=== PATIENT | male | born 1950 | race Caucasian/White ===

== ENCOUNTER 2018-05-01 09:50 | Day surgery (SDC) | payer MEDICARE ==
[~2018-05-01] VITALS: Ht 175.3 cm; Wt 80.8 kg
[~2018-05-01 09:50] MED LIST: ALPR2TAB7 PO; ASPI-555 PO; ATOR20TA65 PO; FAMO40TA7 PO; FENTANYL CITRATE PF 50 MCG/1 ML 2ML VIAL ONE; FOLI1TAB15 PO; FURO40TA5 PO; HYDR-4068 PO; METO50TA18 PO; PROPOFOL 1000 MG/100 ML 0 ML IV ONE; SODIUM CHLORIDE 0.9% 1000ML 1,000 ML IV ONE; SUCCINYLCHOLINE CHLORIDE 20 MG/ML 10 ML VIAL ONE; TAMS-1 PO; TIZANDINE PO
[2018-05-01 10:07] VITALS: BP 115/78
[2018-05-01] MEDS ORDERED: PROPOFOL 10 MG/ML 20ML VIAL IV ONE (10:51)
[2018-05-01 11:20] VITALS: BP 127/78
[2018-05-01 11:25] VITALS: BP 111/71
[2018-05-01 11:30] VITALS: BP 118/73
[2018-05-01 11:35] VITALS: BP 120/79
--- NOTE | 2018-05-01 11:40 | NUR ---
PT STATES SLIGHT CHEST DISCOMFORT AND LEFT ARM PAIN, PT WAS LAYING ON LEFT SIDE FOR PROCEDURE. ONCE PT WAS TURNED ON HIS BACK AND REPOSITIONED, PAIN STOPPED. PT COMFORTABLE SINUS BRADYCARDIA, NO SOB, NO DISTRESS NOTED. 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
[2018-05-01 11:45] VITALS: BP 133/77
== END 2018-05-01 11:50 | disposition home or self-care (01) ==
LOC: DAH 09:50 → ENDO 09:50
PROVIDERS: ATTEND Internal Medicine
DX: Z12.11 Encounter for screening for malignant neoplasm of colon (principal); D12.5 Benign neoplasm of sigmoid colon; D12.3 Benign neoplasm of transverse colon; K63.5 Polyp of colon; K57.30 Diverticulosis of large intestine without perforation or abscess without bleeding; K64.0 First degree hemorrhoids; E78.5 Hyperlipidemia, unspecified; I10 Essential (primary) hypertension; F41.9 Anxiety disorder, unspecified; F32.9 Major depressive disorder, single episode, unspecified; N40.0 Benign prostatic hyperplasia without lower urinary tract symptoms; I25.10 Atherosclerotic heart disease of native coronary artery without angina pectoris; Z79.899 Other long term (current) drug therapy; Z95.5 Presence of coronary angioplasty implant and graft; Z98.890 Other specified postprocedural states; Z80.0 Family history of malignant neoplasm of digestive organs; K21.9 Gastro-esophageal reflux disease without esophagitis
CPT/HCPCS: 45380; 45385; 88305; 93005 ×2; A4606; J0330; J2704; J7030; J3010

== ENCOUNTER → 2020-11-06 | Outpatient (CLI) | payer OTHER ==
[~2020-11-06] MED LIST changes: -ASPI-555 PO; +ASPI-556 PO; -FENTANYL CITRATE PF 50 MCG/1 ML 2ML VIAL ONE; -PROPOFOL 1000 MG/100 ML 0 ML IV ONE; -SODIUM CHLORIDE 0.9% 1000ML 1,000 ML IV ONE; -SUCCINYLCHOLINE CHLORIDE 20 MG/ML 10 ML VIAL ONE
== END | disposition home or self-care (01) ==
LOC: SHCH 13:03
PROVIDERS: ATTEND Internal Medicine Cardiovascular Disease
DX: I08.0 Rheumatic disorders of both mitral and aortic valves (principal)
CPT/HCPCS: 93306

== ENCOUNTER → 2024-03-05 | Outpatient (CLI) | payer OTHER ==
[~2024-03-05] VITALS: Ht 172.7 cm; Wt 81.4 kg
[~2024-03-05] MED LIST changes: +ALPR0.5T8 PO; -ALPR2TAB7 PO; +APIX5TAB PO; -ASPI-556 PO; -ATOR20TA65 PO; -FOLI1TAB15 PO; -FURO40TA5 PO; +FURO80TA3 PO; +METO25TA6 PO; -METO50TA18 PO; +SOTA80TA PO; -TIZANDINE PO
--- NOTE | 2024-03-05 12:54 | EKG ---
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
[2024-03-05 13:08] LABS: BASOPHILS # (AUTO) 0.04 K/uL (0.00-0.20); BASOPHILS % (AUTO) 0.7 % (0.0-5.0); EOSINOPHILS # (AUTO) 0.42 K/uL (0.00-0.70); EOSINOPHILS % (AUTO) 7.2 % (0.0-8.0); HEMATOCRIT 41.9 % (42-54); IMMATURE GRANULOCYTE ABSOLUTE 0.02 K/uL (0-1); LYMPHOCYTES # (AUTO) 1.1 K/uL (1.0-4.8); LYMPHOCYTES % (AUTO) 18.3 % (21.0-51.0); MEAN CORPUSCULAR HEMOGLOBIN 29.2 pg (27.0-33.0); MEAN CORPUSCULAR HGB CONC 32.2 g/dL (32.0-36.0); MEAN CORPUSCULAR VOLUME 90.5 fL (79-99); MONOCYTES # (AUTO) 0.8 K/uL (0.1-1.0); MONOCYTES % (AUTO) 13.5 % (3.0-13.0); NEUTROPHILS # (AUTO) 3.5 K/uL (1.8-7.7); PLATELET COUNT (AUTO) 229 K/uL (130-400); RED BLOOD CELL COUNT(AUTO) 4.63 MIL/uL (4.50-6.20); RED CELL DISTRIBUTION WIDTH 14.4 % (11.0-15.5); WHITE BLOOD COUNT (AUTO) 5.8 K/uL (4.8-10.8)
[2024-03-05 13:11] VITALS: BP 120/68; PULSE 53; RESP 18; TEMP 97.3
[2024-03-05 13:18] LABS: INR 0.98 (0.85-1.15); PROTHROMBIN TIME 10.6 SEC (9.6-11.6)
[2024-03-05 13:20] LABS: PARTIAL THROMBOPLASTIN TIME 26.5 SEC (26.3-35.5)
[2024-03-05 13:21] LABS: CREATININE 1.5 mg/dL (0.5-1.3); POTASSIUM 4.3 mmol/L (3.5-5.1)
[2024-03-05 13:53] LABS: B-TYPE NATRIURETIC PEPTIDE 195 pg/mL (0-100)
--- NOTE | 2024-03-05 14:31 | HMCIMG ---
CHEST 1VW HISTORY: Preop COMPARISON: 12/14/2023 FINDINGS: A frontal projection of the chest was obtained. No acute pulmonary infiltrates is seen. The heart is borderline enlarged. Prominent interstitial markings are seen. Degenerative changes are seen. No evidence of aortic calcification is seen. IMPRESSION: 1. No acute pulmonary infiltrate is seen.
== END | disposition home or self-care (01) ==
LOC: DAH 10:00 → EDSTATUS 12:00
PROVIDERS: ATTEND Internal Medicine Interventional Cardiology
DX: Z01.818 Encounter for other preprocedural examination (principal); J84.9 Interstitial pulmonary disease, unspecified; I48.11 Longstanding persistent atrial fibrillation; M47.814 Spondylosis without myelopathy or radiculopathy, thoracic region
CPT/HCPCS: 36415; 71045; 80048; 83880; 85025; 85610; 85730; 93005